=== PATIENT | female | born 1945 ===

== ENCOUNTER 2022-04-24 14:17 | Inpatient (IN) | payer OTHER ==
[~2022-04-24] VITALS: Ht 152.4 cm; Wt 56.7 kg
[2022-04-25] MEDS ORDERED: VASOTEC20 MG PO (08:44)
[2022-04-25] MEDS ORDERED: HYDROCHLOROTHIA25 MG PO (08:44)
[2022-04-25] MEDS ORDERED: ATORVASTATIN CA40 MG PO (08:44)
[2022-04-25] MEDS ORDERED: GLUMETZA500 MG PO (08:45)
[2022-04-25] MEDS ORDERED: SYNTHROID50 MCG PO (08:45)
[2022-04-25] MEDS ORDERED: PEPCID AC20 MG PO (08:46)
[2022-04-29] MEDS ORDERED: CIMETIDINE400 MG (13:09)
[2022-05-01] MEDS ORDERED: OXYC1TAB9 PO (06:40)
[2022-05-01] MEDS ORDERED: XARELTO10 MG PO (06:40)
[2022-05-01] MEDS ORDERED: BACTRIM DS TAB1 EACH PO (06:40)
[2022-05-01] MEDS ORDERED: INTEGRA PLUS C1 EACH PO (06:40)
== END 2022-05-01 16:04 | DRG 470 ==
LOC: O/R 04-29 06:52 → SURG 04-29 07:00 → SURH 04-29 13:47
PROVIDERS: ADMIT Orthopaedic Surgery Sports Medicine; ATTEND Orthopaedic Surgery Sports Medicine
PROC: 0SRC0J9 Replacement of Right Knee Joint with Synthetic Substitute, Cemented, Open Approach (ICD-10-PCS; principal; 2022-04-29 07:00)
DX: M17.11 Unilateral primary osteoarthritis, right knee (principal); I10 Essential (primary) hypertension; E03.8 Other specified hypothyroidism; E10.9 Type 1 diabetes mellitus without complications; Z79.4 Long term (current) use of insulin; Z96.651 Presence of right artificial knee joint